=== PATIENT | female | born 1980 | race African-American/Black ===

== ENCOUNTER 2025-02-22 17:14 | Emergency (ER) | payer BC ==
[~2025-02-22] VITALS: Ht 165.1 cm; Wt 100.0 kg
[2025-02-22 17:19] VITALS: O2SAT 99
[2025-02-22 17:58] VITALS: BP 141/87; PULSE 78; RESP 18; TEMP 36.9; O2SAT 99
[2025-02-22] MEDS ORDERED: SODIUM CHLORIDE 0.9% 1,000 ML IV ONE (18:15)
[2025-02-22] MEDS ORDERED: METOCLOPRAMIDE HCL 10MG/2ML VIAL IV ONE (18:15)
[2025-02-22] MEDS ORDERED: DIPHENHYDRAMINE 50MG/ML VIAL IV ONE (18:15)
[2025-02-22 19:10] LABS: CLARITY URINE CLEAR (CLEAR); COLOR URINE YELLOW (YELLOW); GLUCOSE URINE NEGATIVE (NEGATIVE); KETONES URINE NEGATIVE (NEGATIVE); LEUKOCYTE ESTERASE URINE NEGATIVE (NEGATIVE); NITRITE URINE NEGATIVE (NEGATIVE); OCCULT BLOOD URINE NEGATIVE (NEGATIVE); PH URINE 7.5 (4.5-8.0); PROTEIN URINE NEGATIVE (NEGATIVE); SPECIFIC GRAVITY URINE 1.006 (1.005-1.030); UROBILINOGEN URINE 0.2 E.U./dL (0.2-1.0)
== END 2025-02-22 18:54 | disposition left against medical advice (07) ==
LOC: ER 17:14 → CMPBEDREQ 02-23 19:33
DX: R42 Dizziness and giddiness (principal); M10.9 Gout, unspecified; Z55.6 Problems related to health literacy; Z75.3 Unavailability and inaccessibility of health-care facilities
CPT/HCPCS: 99283; 81003; 81025; J7030